=== PATIENT | female | born 1965 | race Caucasian/White ===

== ENCOUNTER 2016-07-28 13:47 | Emergency (ER) | payer OTHER ==
[~2016-07-28] VITALS: Ht 170.2 cm; Wt 103.0 kg
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
--- NOTE | 2016-07-28 16:14 | RADIOLOGY REPORT ---
EXAMINATION: XR CHEST CLINICAL INFORMATION: Chest pain status post fall COMPARISON: None. TECHNIQUE: PA and lateral views of the chest were obtained. FINDINGS: Heart size is normal. Mediastinal contours are normal. Lungs are clear without consolidation, effusion or pneumothorax. Visualized osseous structures appear intact. Lower cervical spinal fusion hardware, partially imaged. IMPRESSION: No acute process
--- NOTE | 2016-07-28 16:16 | RADIOLOGY REPORT ---
EXAMINATION: XR SHOULDER, RIGHT CLINICAL INFORMATION: Fall. Pain. COMPARISON: None. TECHNIQUE: 3 views. FINDINGS: No acute change. No fracture. No dislocation. Glenohumeral joint normal. Mild degenerative change of the acromioclavicular joint with joint narrowing and small spurs of the clavicle and acromion inferiorly. No soft tissue calcification. IMPRESSION: No acute abnormality.
--- NOTE | 2016-07-28 16:17 | RADIOLOGY REPORT ---
EXAMINATION: XR HAND, RIGHT CLINICAL INFORMATION: Pain. Fall. COMPARISON: None TECHNIQUE: AP, lateral, and oblique views of the right hand. FINDINGS: No fracture. No dislocation. No acute abnormality. No soft tissue abnormality. IMPRESSION: Normal right hand.
--- NOTE | 2016-07-28 16:18 | RADIOLOGY REPORT ---
EXAMINATION: XR KNEE, LEFT CLINICAL INFORMATION: Fall. Pain. COMPARISON: None. TECHNIQUE: 4 views. FINDINGS: No fracture. No dislocation. No joint effusion. Degenerative joint disease. Joint space narrowing of the femoral tibial joint and patellofemoral joint with marginal spurs of the bones at each joint space compartment. There is no bone erosion. There is no soft tissue calcification. IMPRESSION: No acute abnormality. Degenerative joint disease.
--- NOTE | 2016-07-28 16:22 | RADIOLOGY REPORT ---
EXAMINATION: XR ELBOW, RIGHT CLINICAL INFORMATION: Fall, pain, question fracture COMPARISON: None TECHNIQUE: AP, lateral, and oblique views of the right elbow, 4 views. FINDINGS: There is a small joint effusion. There is mild irregularity along the distal humerus on the frontal radiograph, ulnar aspect. Note is made of degenerative changes involving the lateral epicondyle. On the lateral view there is some question of cortical irregularity along the distal humerus, posterior aspect. The radial head appears intact on the provided views. The visualized proximal ulna is unremarkable. IMPRESSION: 1. Small right elbow effusion. No fracture is identified. 2. Mild degenerative changes involving the medial and lateral epicondyles.
--- NOTE | 2016-07-28 16:24 | RADIOLOGY REPORT ---
EXAMINATION: BILATERAL FEET. CLINICAL INFORMATION: Pain status post fall. COMPARISON: None. TECHNIQUE: 3 views of each foot. FINDINGS: Bone mineral density is maintained without evidence of fracture or dislocation. No focal osseous lesions are seen. No significant appear erosive or productive changes are seen. There are moderate sized plantar calcaneal spurs and dorsal enthesophytes at the Achilles tendon attachment. IMPRESSION: No fracture or dislocation is seen.
[2016-07-28] MEDS ORDERED: CYMBALTA60 M1 PO (16:30)
[2016-07-28] MEDS ORDERED: OXYCODONE HCL5 M1 PO (16:30)
[2016-07-28] MEDS ORDERED: GABAPENTIN600 M1 PO (16:31)
[2016-07-28] MEDS ORDERED: GABAPENTIN400 M2 PO (16:32)
[2016-07-28] MEDS ORDERED: TIZANIDINE HCL4 M1 PO (16:39)
[2016-07-28] MEDS ORDERED: BIOTIN300 MC1 PO (16:39)
[2016-07-28] MEDS ORDERED: TYLENOL EXTRA500 M2 PO (16:39)
[2016-07-28] MEDS ORDERED: VITAMIN C500 M6 PO (16:40)
[2016-07-28] MEDS ORDERED: MULTI-DAY VITA1 EACH PO (16:40)
[2016-07-28] MEDS ORDERED: VITAMIN D2000 UNI1 PO (16:41)
--- NOTE | 2016-07-28 16:50 | RADIOLOGY REPORT ---
EXAMINATION: XR KNEE, RIGHT CLINICAL INFORMATION: Pain status post fall. Assess for fracture. COMPARISON: None. TECHNIQUE: 4 views of the left knee were obtained. FINDINGS: There is normal alignment of the patellofemoral and knee joints. There are no fractures or subluxations. There is severe multi-compartmental degenerative joint disease. There is narrowing of the patellofemoral and medial knee joints, with marginal osteophytes. There are osteophytes of the superior tibial spine. There is calcification of the menisci medially and laterally. The soft tissues are unremarkable. IMPRESSION: 1. There are no acute fractures or subluxations. 2. There are severe degenerative changes.
--- NOTE | 2016-07-28 16:52 | CT SCAN REPORT ---
EXAMINATION: CT HEAD WITHOUT CONTRAST CT MAXILLOFACIAL WITHOUT CONTRAST CT CERVICAL SPINE WITHOUT CONTRAST CLINICAL INFORMATION: Fall. Loss of consciousness and headache. Right eye pain and swelling. Neck pain. Assess for fracture. COMPARISON: None TECHNIQUE: Multidetector CT imaging of the head, maxillofacial region and cervical spine was performed without the use of intravenous contrast. Coronal and sagittal reformatted images were generated at the technologist workstation. DLP: 1690.01 mGy-cm FINDINGS: CT HEAD: There is no evidence of acute intracranial hemorrhage or territorial infarction. No abnormal mass-effect or midline shift is seen. Suazo to white matter differentiation is well preserved. No extra-axial fluid collections are identified. The ventricles are normal in size. There is no abnormal attenuation within the brain parenchyma. There is soft tissue swelling around the lateral right orbit. There are no radiopaque foreign bodies. There is hyperostosis frontalis interna. There is irregularity of the contour of the left condylar neck and head, consistent with sequelae of prior trauma. No acute fractures are demonstrated in these regions on the current study. The mastoid air cells and visualized portions of the paranasal sinuses are well aerated. CT MAXILLOFACIAL: There is periorbital soft tissue swelling around the right orbit. The swelling also extends along the right malar region. The orbits, globes, and the lamina papyracea are intact. The orbital apices, optic canals, and retrobulbar fat planes are normal. There is slight irregularity of the left nasal bone without associated soft tissue swelling, most consistent with prior trauma. The nasal septum is deviated to the right anteriorly. The maxillary girard, pterygoid plates and zygomatic arches are intact, and there are no air-fluid levels in the maxillary sinuses. As described above there is irregularity of the left temporomandibular condylar head and neck, consistent with sequelae of prior trauma. There are periapical lucencies around the palatal root of the right maxillary 1st premolar and around the mesial buccal root of the left maxillary 1st molar; both these teeth have root fillings. CT CERVICAL SPINE: There has been a multilevel ACDF between the levels of C3 and C7. There is an anterior plate and there are bilateral screws in the bodies of C4, C5, C6 and C7. The hardware appears intact though the heads of the screws of C7 are not flush with the anterior plate. There are intervertebral disc grafts at C3-C4, C4-C5 and C5-C6 which appear well integrated into the adjacent vertebral bodies. The C6-C7 intervertebral level does not demonstrate good osseous fusion, and there is irregularity of the adjacent endplates. There is also narrowing of intervertebral disc height at C7-T1. There are no acute compression fractures. Bone mineralization appears diffusely decreased. There is calcification along the inferior margin of the anterior arch of C1, likely dystrophic. There is multilevel ossification of the posterior longitudinal ligament, most exuberant at C3-C4 and at C6-C7. There is distortion of the spinal cord at these levels, likely chronic. The lateral masses of C1 and C2 are normally aligned. The dens is intact. There is mild narrowing of the bilateral atlantoaxial joints. Accounting for artifact, the paravertebral structures are unremarkable. The visualized lung apices are well aerated. IMPRESSION: CT HEAD: 1. There are no acute bleeds or territorial infarcts. 2. No calvarial fractures are demonstrated. 3. There is soft tissue swelling around the right orbit. CT MAXILLOFACIAL: 1. There is soft tissue swelling around the right orbit and right malar regions. 2. There are no acute fractures. There is irregularity of the left temporomandibular condylar neck and head consistent with sequelae of prior trauma. Irregularity of the left nasal bone may also be related to prior trauma. CT CERVICAL SPINE: 1. There are sequelae of a long segment ACDF between C3 and C7. The hardware appears intact. 2. There is good osseous integration of the intervertebral disc grafts between C3-C4 and C5-C6; at C6-C7 there is no osseous integration between the vertebrae. 3. There are no acute fractures or subluxations. 4. There is extensive ossification of the posterior longitudinal ligament as described above.
[2016-07-28 16:59] VITALS: BP 148/84
== END 2016-07-28 17:29 ==
LOC: ERH 13:47
DX: M25.421 Effusion, right elbow (principal); S00.83XA Contusion of other part of head, initial encounter; M25.519 Pain in unspecified shoulder; M79.643 Pain in unspecified hand; M25.569 Pain in unspecified knee; W19.XXXA Unspecified fall, initial encounter; Y93.K1 Activity, walking an animal
CPT/HCPCS: 73030-RT; 73080-RT; 73130-RT; 73562-LT; 73562-RT; 73630-LT; 73630-RT; 96372